=== PATIENT | male | born 1970 | race Caucasian/White ===

== ENCOUNTER 2017-02-02 01:29 | Emergency (ER) | payer OTHER ==
[2017-02-02 02:31] LABS: microscopic required? YES; urine erythrocyte TRACE (NEGATIVE)
[2017-02-02 02:36] LABS: CALCIUM 8.3 mg/dL (8.5-10.1); CARBON DIOXIDE 28.8 mmol/L (21-32); CHLORIDE SERUM 101 mmol/L (98-107); CREATININE SERUM 0.8 mg/dL (0.7-1.3); GFR1 > 60 mL/min; GLUCOSE SERUM 126 mg/dL (74-106); POTASSIUM SERUM 3.8 mmol/L (3.5-5.1); SODIUM SERUM 137 mmol/L (136-145)
[2017-02-02 04:14] VITALS: BP 144/99
== END 2017-02-02 04:14 | disposition home or self-care (01) ==
LOC: ED 01:29
PROVIDERS: Emergency Medicine
DX: M79.1 Myalgia (principal); M79.605 Pain in left leg; M79.604 Pain in right leg
CPT/HCPCS: 36415; J1885

== ENCOUNTER 2019-03-31 09:30 | Inpatient (IN) | payer MEDICAID ==
[~2019-03-31] VITALS: Ht 177.8 cm; Wt 112.9 kg
[2019-03-31 10:43] LABS: BASOPHIL % 0.2 % (0-2); PLATELET COUNT 316 x10^3mcL (130-400); RED CELL DISTRIBUTION WIDTH 13.5 % (11.5-14.5)
[2019-03-31 10:53] LABS: CALCIUM 7.7 mg/dL (8.5-10.1); CARBON DIOXIDE 27.2 mmol/L (21-32); CHLORIDE SERUM 107 mmol/L (98-107); CREATININE SERUM 0.8 mg/dL (0.7-1.3); GFR1 > 60 mL/min; GLUCOSE SERUM 128 mg/dL (74-106); POTASSIUM SERUM 4.2 mmol/L (3.5-5.1); SODIUM SERUM 141 mmol/L (136-145)
[2019-03-31 10:58] LABS: ALKALINE PHOSPHATASE 84 U/L (46-116); ALT/SGPT 49 U/L (16-63); AST/SGOT 19 U/L (15-37); BILIRUBIN TOTAL 0.3 mg/dL (0.20-1.00); LIPASE 109 IU/L (73-393)
[2019-03-31 10:59] LABS: TOTAL PROTEIN, SERUM 6.1 g/dL (6.4-8.2)
[2019-03-31 12:54] LABS: CHOLESTEROL/HDL RATIO 2.8; PHOSPHOROUS 3.5 mg/dL (2.5-4.9)
[2019-03-31 13:04] LABS: microscopic required? NO
[2019-03-31 13:09] VITALS: BP 147/92
[2019-03-31 13:12] VITALS: Ht 177.8 cm; Wt 112.9 kg
[2019-03-31 13:15] LABS: UA SPECIFIC GRAVITY 1.015 (1.005-1.035); urine erythrocyte NEGATIVE (NEGATIVE)
[2019-03-31 15:38] LABS: AMPHETAMINE QUAL UR NONE DETECTED (See below)
[2019-03-31 15:50] VITALS: BP 126/79
[2019-03-31 19:52] VITALS: BP 126/73
[2019-04-01 05:17] VITALS: BP 104/68
[2019-04-01 06:48] LABS: CALCIUM 7.5 mg/dL (8.5-10.1); CARBON DIOXIDE 25.2 mmol/L (21-32); CHLORIDE SERUM 108 mmol/L (98-107); CREATININE SERUM 0.8 mg/dL (0.7-1.3); GFR1 > 60 mL/min; GLUCOSE SERUM 110 mg/dL (74-106); POTASSIUM SERUM 3.6 mmol/L (3.5-5.1); SODIUM SERUM 142 mmol/L (136-145)
[2019-04-01 06:57] LABS: BASOPHIL % 0.2 % (0-2); PLATELET COUNT 278 x10^3mcL (130-400); RED CELL DISTRIBUTION WIDTH 14.3 % (11.5-14.5)
[2019-04-01 07:34] VITALS: BP 110/75
[2019-04-01 14:38] VITALS: BP 128/88
[2019-04-01 16:17] LABS: BASOPHIL % 0.4 % (0-2); PLATELET COUNT 286 x10^3mcL (130-400); RED CELL DISTRIBUTION WIDTH 14.2 % (11.5-14.5)
[2019-04-01 16:20] VITALS: BP 128/78
[2019-04-01 20:30] VITALS: BP 129/77
[2019-04-02 05:40] VITALS: BP 115/77
[2019-04-02 06:59] LABS: BASOPHIL % 0.5 % (0-2); PLATELET COUNT 333 x10^3mcL (130-400); RED CELL DISTRIBUTION WIDTH 13.9 % (11.5-14.5)
[2019-04-02 07:35] LABS: CALCIUM 7.8 mg/dL (8.5-10.1); CARBON DIOXIDE 29.1 mmol/L (21-32); CHLORIDE SERUM 104 mmol/L (98-107); CREATININE SERUM 0.8 mg/dL (0.7-1.3); GFR1 > 60 mL/min; GLUCOSE SERUM 97 mg/dL (74-106); POTASSIUM SERUM 3.8 mmol/L (3.5-5.1); SODIUM SERUM 139 mmol/L (136-145)
[2019-04-02 08:29] VITALS: BP 137/78
[2019-04-02] MEDS ORDERED: NATURAL IRON65 MG PO (10:58)
[2019-04-02] MEDS ORDERED: GOOD SENSE OMEP20 MG PO (10:58)
[2019-04-02 12:20] VITALS: BP 137/78
== END 2019-04-02 12:47 | disposition home or self-care (01) | DRG 241 ==
LOC: ED 09:30 → MU 12:07
PROVIDERS: Emergency Medicine; Internal Medicine Gastroenterology; ADMIT General Practice
PROC: 0DB78ZX Excision of Stomach, Pylorus, Via Natural or Artificial Opening Endoscopic, Diagnostic (ICD-10-PCS; principal; 2019-04-01 17:15)
PROC: 0DJD8ZZ Inspection of Lower Intestinal Tract, Via Natural or Artificial Opening Endoscopic (ICD-10-PCS; 2019-04-01 17:15)
DX: K25.4 Chronic or unspecified gastric ulcer with hemorrhage (principal); E83.51 Hypocalcemia; K57.30 Diverticulosis of large intestine without perforation or abscess without bleeding
CPT/HCPCS: 43235; 45378; 90658; C9113; G0378; J1200; J1610; J2250; J2270; J2310; J2765; J3010; J3490; J7030; Q9967